=== PATIENT | female | born 1975 | race Hispanic/Latino ===

== ENCOUNTER 2020-07-25 13:44 | Emergency (ER) | payer OTHER, MEDICAID, SELFPAY ==
[2020-07-25 13:50] VITALS: BP 126/72; PULSE 95; RESP 14; TEMP 37.3; O2SAT 97; BMI 26.9
[2020-07-25 14:41] LABS: Bacteria Urine None Seen
[2020-07-25 14:46] LABS: Culture Indicated Urine Cult Not Indicated; RBC Urine 1-5/HPF (0-5/HPF); Squamous Epithelial Cell Urine 5-10 /HPF (0-5/HPF); WBC Urine 0-1/HPF (0-5/HPF)
== END 2020-07-25 18:10 | disposition left against medical advice (07) ==
PROVIDERS: Emergency Provider Emergency Medicine; PCP Family Medicine
DX: R42 Dizziness and giddiness (principal); M54.5 Low back pain; R51.9 Headache, unspecified
CPT/HCPCS: 81003; 81015; 93005; 99281

== ENCOUNTER 2021-06-19 16:06 | Emergency (ER) | payer OTHER, MEDICAID, SELFPAY ==
[2021-06-19] VITALS (7 sets, daily range): BP systolic 105–142; BP diastolic 65–76; PULSE 66–85; RESP 16–24; TEMP 36.4; O2SAT 96–100; BMI 24.2
--- NOTE | 2021-06-19 16:35 | DI.RAD.S_ITS ---
PROCEDURE: XR CHEST 1V INDICATIONS: chest pain TECHNIQUE: One view of the chest was acquired. COMPARISON: None. FINDINGS: Surgical changes and devices: Breast implants are present. Lungs and pleura: Lungs are clear. No pleural effusions or pneumothorax. Mediastinum: Mediastinal contours appear normal. Heart size is normal. Bones and chest wall: No suspicious bony lesions. Overlying soft tissues appear unremarkable. IMPRESSION: No acute pulmonary process. Dictated by: Tali oYst M.D. on 06/19/2021 at 16:55 Approved by: Tali Yost M.D. on 06/19/2021 at 16:56
[2021-06-19 16:50] LABS: Add Manual Diff / Slide Review NO; Basophils Absolute Auto 100 /uL (0-100); Eosinophils Absolute Auto 300 /uL (0-450); Eosinophils Percent Auto 2.9 % (2-4); Hemoglobin 13.3 g/dL (12.0-16.0); Lymphocytes Absolute Auto 2700 /uL (1100-4500); Lymphocytes Percent Auto 28.6 % (25-40); Mean Corpuscular Hemoglobin 32.3 PG (26-34); Mean Corpuscular Volume 92.3 fL (80-100); Monocytes Absolute Auto 700 /uL (0-900); Monocytes Percent Auto 7.3 % (3-14); Neutrophils Absolute Auto 5600 /uL (1500-7000); Neutrophils Percent Auto 60.2 % (50-75); Platelet Count 307 X10^3/uL (150-400); Red Blood Cell Count 4.12 X10^6/uL (4.0-5.2); Red Cell Distribution Width 12.5 % (11.6-14.8); White Blood Cell Count 9.3 X10^3/uL (4.5-11.0)
[2021-06-19 17:31] LABS: HEMOLYSIS < 15 (0-50); Troponin I < 0.012 ng/mL (0.01-0.034)
[2021-06-19 17:50] LABS: Alanine Aminotransferase 16 IU/L (<35); Albumin 4.5 g/dL (3.5-5.0); Albumin Globulin Ratio 1.3 (1.0-2.8); Alkaline Phosphatase 67 U/L (38-126); Aspartate Aminotransferase 26 IU/L (14-36); BUN Creatinine Ratio 14.8 (6-22); Bilirubin Total 0.5 mg/dL (0.2-1.3); Blood Urea Nitrogen 12 mg/dL (7-17); Calcium 9.1 mg/dL (8.4-10.2); Carbon Dioxide 24 mmol/L (22-32); Chloride 104 mmol/L (98-107); Creatine Kinase 87 U/L (30-135); Estimated Glomerular Filt Rate > 60 mL/min (>60); Globulin 3.5 g/dL (1.7-4.1); Glucose 92 mg/dL (70-100); Lipase 105 U/L (23-300); Magnesium 2.1 mg/dL (1.6-2.3); Sodium 137 mmol/L (137-145)
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
[2021-06-19] MEDS: KETOROLAC 30 MG/ML VIAL 15 MG IV (19:24)
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
[2021-06-19] MEDS: MORPHINE 2 MG/ML INJ IV (19:43)
== END 2021-06-19 20:16 | disposition home or self-care (01) ==
PROVIDERS: Emergency Medicine; Emergency Provider Emergency Medicine; PCP Family Medicine
DX: R07.89 Other chest pain (principal); K08.89 Other specified disorders of teeth and supporting structures; R68.84 Jaw pain
CPT/HCPCS: 36415; 71045; 80053; 82550; 83690; 83735; 84484; 85025; 93005; 96374; 96375; 99284; J1885; J2270

== ENCOUNTER 2021-09-18 22:10 | Emergency (ER) | payer OTHER, MEDICAID, SELFPAY ==
[2021-09-18 22:19] VITALS: BP 144/82; PULSE 80; RESP 19; TEMP 36.4; O2SAT 99; BMI 23.2
--- NOTE | 2021-09-18 22:28 | ED_ITS ---
HPI - Headache General Chief Complaint: Headache Stated Complaint: headache, dizziness, cold sweats Time Seen by Provider: 09/18/21 22:26 Mode of arrival: Ambulatory History of Present Illness HPI Narrative: 46-year-old female smoker presents with family in the chief complaint of a gradually worsening generalized headache with associated nausea and chills. She denies any measured fever. She denies any trauma or injury. She does not take any blood thinners. She does have some mild neck pain. She denies abdominal pain. She has no neurologic symptoms such as blurred vision, trouble with speech or extremity numbness, tingling or weakness. She states her headache is worse with bright lights and loud noise and improves in a dark room. She states she is been under tremendous stress at home with an upcoming anniversary of a very significant event in her life Related Data Previous Rx's Medication Instructions Recorded amoxicillin 500 mg capsule 500 mg PO BID #14 caps 06/19/21 hydrocodone 5 mg-acetaminophen 325 1 tab PO Q6H PRN pain #10 tabs 06/19/21 mg tablet Allergies Allergy/AdvReac Type Severity Reaction Status Date / Time No Known Drug Allergies Allergy Verified 07/25/20 13:52 Review of Systems Review of Systems Narrative: GENERAL: See HPI HEENT: See HPI RESPIRATORY: Denies dyspnea, cough, wheezing, hemoptysis, sputum. CARDIOVASCULAR: Denies chest pain, palpitations, orthopnea, edema, GASTROINTESTINAL: See HPI : Denies dysuria, frequency, incontinence, hematuria, urinary retention. MUSCULOSKELETAL: denies weakness, joint pain, or bony pain SKIN: Denies rash, skin lesions, or other NEUROLOGIC: See HPI PSYCHIATRIC: No concerning psychosocial issues. 12 point review of systems is negative except for those stated above Patient History Social History Smoking Status: Current some day smoker Smoking Status: Current some day smoker alcohol intake frequency: holidays/special occasions only Substance Use Type: does not use Exam Narrative Exam Narrative: GENERAL: [46] year old patient appears stated age. Well-developed patient, in mild distress. HEAD: Atraumatic. Normocephalic. EYES: Pupils equal round and reactive. Extraocular motions intact. No scleral icterus. No injection or drainage. ENT: Nose without bleeding, purulent drainage. Throat without erythema, tonsillar hypertrophy or exudate. Airway patent. NECK: Trachea midline. Non tender no meningeal signs CARDIOVASCULAR: Regular rate and rhythm without murmurs, gallops, or rubs. RESPIRATORY: Clear to auscultation. Breath sounds equal bilaterally. No wheezes, rales, or rhonchi. GASTROINTESTINAL: Abdomen soft, non-tender, nondistended. EXTREMITIES: No edema or joint tenderness. BACK: Nontender without deformity or crepitance. No flank tenderness. NEURO: AOx3. SKIN: No rash or erythema of visible areas Initial Vital Signs Initial Vital Signs: Vital Signs Temperature 97.6 F 09/18/21 22:19 Pulse Rate 80 09/18/21 22:19 Respiratory Rate 19 09/18/21 22:19 Blood Pressure 144/82 H 09/18/21 22:19 Pulse Oximetry 99 09/18/21 22:19 Oxygen Delivery Method 09/18/21 22:19 Course Orders Ordered: ED Orders 09/18/21 23:46 COVID19 -Nasal RAPID/Pre-Proc Stat 09/19/21 01:40 Respiratory Panel (Film Array) Stat Discontinued Medications Dexamethasone (Dexamethasone 10 Mg/Ml Vial) 10 mg IV NOW ONE Stop: 09/18/21 23:18 Last Admin: 09/18/21 23:31 Dose: 10 mg Documented By: EB Diphenhydramine HCl (Diphenhydramine 50 Mg/Ml Vial) 25 mg IV NOW ONE Stop: 09/18/21 23:18 Last Admin: 09/18/21 23:31 Dose: 25 mg Documented By: EB Sodium Chloride (Normal Saline 0.9%) 1,000 mls @ 1,000 mls/hr IV BOLUS ONE Stop: 09/19/21 00:16 Last Admin: 09/18/21 23:31 Dose: 1,000 mls/hr Documented By: EB Ketorolac Tromethamine (Ketorolac 30 Mg/Ml Vial) 15 mg IV NOW ONE Stop: 09/18/21 23:18 Last Admin: 09/18/21 23:31 Dose: 15 mg Documented By: EB Metoclopramide HCl (Metoclopramide 10 Mg/2 Ml Inj) 10 mg IV NOW ONE Stop: 09/18/21 23:18 Last Admin: 09/18/21 23:32 Dose: 10 mg Documented By: EB Vital Signs Vital signs: Vital Signs - 8 hr 09/18/21 22:19 09/19/21 01:00 09/19/21 02:43 Temperature 97.6 F Pulse Rate 80 87 75 Respiratory Rate 19 17 16 Blood Pressure 144/82 H 124/79 129/74 Pulse Oximetry 99 97 99 Oxygen Delivery Method Room Air Room Air Room Air MDM - Headache Lab Data Labs: Lab Results 09/18/21 09/19/21 Range/Units 23:46 01:40 Chlamy pneumoniae PCR Not detected (Not Detect) Adenovirus (PCR) Not detected (Not Detect) B. pertussis DNA (PCR) Not detected (Not Detecte) B.parapertussis DNA PCR Not detected (Not Detecte) Coronavirus OC43 (PCR) Not detected (Not Detect) Coronavirus HKU1 (PCR) Not detected (Not Detect) Coronavirus 229E (PCR) Not detected (Not Detect) SARS-CoV-2 (PCR) Negative Not detected (Negative) Coronavirus NL63 (PCR) Not detected (Not Detect) Human Metapneumovir PCR Not detected (Not Detect) Influenza Type A (PCR) Not detected (Not Detect) Influenza Type B (PCR) Not detected (Not Detect) M. pneumoniae (PCR) Not detected (Not Detect) Parainfluenza 1 (PCR) Not detected (Not Detect) Parainfluenza 2 (PCR) Not detected (Not Detect) Parainfluenza 3 (PCR) Not detected (Not Detect) Parainfluenza 4 (PCR) Not detected (Not Detect) RSV (PCR) Not detected (Not Detect) Entero/Rhino (PCR) Not detected (Not Detect) Point of Care Testing Glucose POC 93 MDM Narrative Medical decision making narrative: Multiple etiologies for patient's symptoms considered including: [Migraine versus viral syndrome versus tension headache versus meningitis versus other] Patient's symptoms improved over duration of stay with above-stated therapies. We did discuss the possibility of lumbar puncture but both sure the opinion that it is unlikely to have any significant findings or change the disposition given how well she appears after initial round of therapies. Findings and discharge diagnosis discussed with patient/family followed by verbalization of understanding Return precautions discussed with patient/family whom verbalize understanding. Discharge Plan Departure Patient Disposition: Home Clinical Impression: Headache Instructions: DI for Headache Activity Restrictions/Additional Instructions: *You have been diagnosed with [atypical migraine or stress related headache, as we discussed your history and physical exam as well as response to therapies is very reassuring. *What to do: *Please continue to take your regular medications as directed. [ ] New medication prescriptions sent to your pharmacy: [ ] [ ] New medication written as a paper prescription [x ] No new medications given *Please follow up with your primary care provider in 2-3 days, call for an appointment. Let them know you were seen in the Emergency Department and that we ask that you be seen in follow up. We will electronically transmit a record of today's note if your PCP is in our system *If you do not have a primary care provider please contact the [facility] Resource line at [phone]. They will ask some questions about your medical history and help get you set up with a doctor in the community. *Return to Emergency Department if you should have any new, worsening or concerning symptoms, such as [fever greater than 101 F, shaking chills, worsening pain, persistent vomiting or other bothersome symptoms] Prescriptions: No Action amoxicillin 500 mg capsule 500 mg PO BID Qty: 14 0RF hydrocodone-acetaminophen 5-325 mg tablet 1 tab PO Q6H PRN (Reason: pain) Qty: 10 0RF Referrals: Jus Berry DO [Primary Care Provider] - Visit Report Forms: Patient Portal/API
[2021-09-18] MEDS: KETOROLAC 30 MG/ML VIAL 15 MG IV (23:31)
[2021-09-18] MEDS: DEXAMETHASONE 10 MG/ML VIAL IV (23:31)
[2021-09-18] MEDS: diphenhydrAMINE 50 MG/ML VIAL 25 MG IV (23:31)
[2021-09-18] MEDS: SODIUM CHLORIDE 0.9% 1,000 ML 1000 ML IV (23:31)
[2021-09-18] MEDS: METOCLOPRAMIDE 10 MG/2 ML INJ IV (23:32)
[2021-09-19 00:05] LABS: COVID19 -Nasal RAPID Negative (Negative)
[2021-09-19 01:00] VITALS: BP 124/79; PULSE 87; RESP 17; O2SAT 97
--- NOTE | 2021-09-19 01:49 | PC.NURSE ---
Pt reports pain has improved. Pt thinking recent major life stressors could be causing her symptoms. Provider aware.
[2021-09-19 02:43] VITALS: BP 129/74; PULSE 75; RESP 16; O2SAT 99
[2021-09-19 02:43] LABS: Adenovirus Not Detected (Not Detect); B. parapertussis Not Detected (Not Detecte); Bordetella pertussis Not Detected (Not Detecte); Chlamydophila pneumoniae Not Detected (Not Detect); Coronavirus 229E Not Detected (Not Detect); Coronavirus HKU1 Not Detected (Not Detect); Coronavirus NL 63 Not Detected (Not Detect); Coronavirus OC43 Not Detected (Not Detect); Human Metapneumovirus Not Detected (Not Detect); Human Rhinovirus/Enterovirus Not Detected (Not Detect); Influenza A Not Detected (Not Detect); Influenza B Not Detected (Not Detect); Mycoplasma pneumoniae Not Detected (Not Detect); Parainfluenza Virus 1 Not Detected (Not Detect); Parainfluenza Virus 2 Not Detected (Not Detect); Parainfluenza Virus 3 Not Detected (Not Detect); Parainfluenza Virus 4 Not Detected (Not Detect); Respiratory Syncytial Virus Not Detected (Not Detect); SARS- CoV-2 Not Detected (Not Detecte)
== END 2021-09-19 02:44 | disposition home or self-care (01) ==
PROVIDERS: Emergency Provider Emergency Medicine; PCP Family Medicine
DX: R51.9 Headache, unspecified (principal); M54.2 Cervicalgia; Z20.822 Contact with and (suspected) exposure to COVID-19
CPT/HCPCS: 82962; 87633; 87635; 96374; 96375; 99283; 99284; C9803; J1100; J1200; J1885; J2765

== ENCOUNTER → 2021-12-25 09:54 | Outpatient (CLI) | payer OTHER, MEDICAID, SELFPAY | PROVIDERS: PCP Family Medicine; Referring Provider Internal Medicine; Visit Provider Internal Medicine | DX: Z23 Encounter for immunization (principal) | CPT/HCPCS: 90471; 90686 ==

== ENCOUNTER 2023-02-23 12:40 | Emergency (ER) | payer SELFPAY ==
[2023-02-23] VITALS (8 sets, daily range): BP systolic 132–161; BP diastolic 88–102; PULSE 96–111; RESP 17–25; TEMP 36.7; O2SAT 97; BMI 23.4
--- NOTE | 2023-02-23 12:53 | DI.RAD.S_ITS ---
PROCEDURE: XR CHEST 1V INDICATIONS: chest pain TECHNIQUE: One view of the chest was acquired. COMPARISON: None. FINDINGS: Surgical changes and devices: Mammoplasty implants are incidentally noted. Lungs and pleura: Lungs are clear. No pleural effusions or pneumothorax. Mediastinum: Mediastinal contours appear normal. Heart size is normal. Bones and chest wall: No suspicious bony lesions. Overlying soft tissues appear unremarkable. IMPRESSION: No acute cardiopulmonary abnormality is seen. Dictated by: Ralph Cruz M.D. on 02/23/2023 at 12:14 Approved by: Ralph Cruz M.D. on 02/23/2023 at 12:15
[2023-02-23 13:23] LABS: INR 0.9 (0.9-1.3); Prothrombin Time 10.8 SECONDS (9.4-12.5)
[2023-02-23 13:26] LABS: PTT Partial Thromboplastin Tim 33 SECONDS (25.1-36.5)
[2023-02-23] MEDS: ASPIRIN 81 MG CHEW TAB 324 MG PO (13:26)
[2023-02-23 13:27] LABS: Alanine Aminotransferase 24 IU/L (<35); Albumin 4.8 g/dL (3.5-5.0); Albumin Globulin Ratio 1.2 (1.0-2.8); Alkaline Phosphatase 80 U/L (38-126); Aspartate Aminotransferase 26 IU/L (14-36); BUN Creatinine Ratio 14.5 (6-22); Bilirubin Total 0.6 mg/dL (0.2-1.3); Blood Urea Nitrogen 11 mg/dL (7-17); Carbon Dioxide 25 mmol/L (22-32); Chloride 105 mmol/L (98-107); Creatine Kinase 79 U/L (30-135); Estimated Glomerular Filt Rate > 60 mL/min (>60); Globulin 3.9 g/dL (1.7-4.1); Glucose 100 mg/dL (70-100); HEMOLYSIS 24 (0-50); Lipase 94 U/L (23-300); Magnesium 1.9 mg/dL (1.6-2.3); Potassium 3.9 mmol/L (3.4-5.1); Sodium 138 mmol/L (137-145); Total Protein 8.7 g/dL (6.3-8.2)
[2023-02-23 13:32] LABS: Add Manual Diff / Slide Review NO; Basophils Absolute Auto 100 /uL (0-100); Basophils Percent Auto 0.9 % (0-2); Eosinophils Absolute Auto 100 /uL (0-450); Eosinophils Percent Auto 1.1 % (2-4); Hematocrit 42.5 % (36-46); Hemoglobin 14.2 g/dL (12.0-16.0); Lymphocytes Absolute Auto 1700 /uL (1100-4500); Mean Corpuscular HGB Conc 33.5 % (30-36); Mean Corpuscular Hemoglobin 30.4 PG (26-34); Mean Corpuscular Volume 90.8 fL (80-100); Monocytes Absolute Auto 700 /uL (0-900); Monocytes Percent Auto 6.8 % (3-14); Neutrophils Absolute Auto 7100 /uL (1500-7000); Neutrophils Percent Auto 73.2 % (50-75); Platelet Count 349 X10^3/uL (150-400); Red Blood Cell Count 4.68 X10^6/uL (4.0-5.2); Red Cell Distribution Width 12.5 % (11.6-14.8); White Blood Cell Count 9.7 X10^3/uL (4.5-11.0)
[2023-02-23 13:38] LABS: Troponin I < 0.012 ng/mL (0.01-0.034)
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
== END 2023-02-23 15:41 | disposition home or self-care (01) ==
PROVIDERS: Emergency Provider Emergency Medicine
DX: K22.4 Dyskinesia of esophagus (principal); R07.9 Chest pain, unspecified
CPT/HCPCS: 36415; 71045; 80053; 82550; 83690; 83735; 84484; 85025; 85610; 85730; 93005; 99284

== ENCOUNTER 2023-04-24 12:48 | Emergency (ER) | payer OTHER, SELFPAY ==
[2023-04-24 13:12] VITALS: BP 128/82; PULSE 90; RESP 18; TEMP 37.3; O2SAT 96; BMI 22.2
--- NOTE | 2023-04-24 13:59 | ED_ITS ---
HPI - Psych General Chief Complaint: Psychiatric Symptoms Stated Complaint: lightheaded,lymph nodes swelling in neck Time Seen by Provider: 04/24/23 13:59 Source: patient Mode of arrival: Ambulatory History of Present Illness HPI Narrative: 47-year-old female presents with lightheadedness, lymph node swelling in neck. The patient is extremely paranoid on arrival, stating she thinks her phone has been hacked and that she is being followed. She has some trouble giving good history in this setting. She does not know intermittent mild headaches recently, along with possible intermittent bilateral lymph node swelling in neck that she states has been present since 2017. She denies fevers, chills, sudden or severe pain, neck stiffness or pain, rash, visual or hearing changes, nausea or vomiting or diarrhea, focal numbness or weakness, shortness of breath, or other changes. Social work is also being involved for further assessment. Related Data Previous Rx's Medication Instructions Recorded amoxicillin 500 mg capsule 500 mg PO BID #14 caps 06/19/21 hydrocodone 5 mg-acetaminophen 325 1 tab PO Q6H PRN pain #10 tabs 06/19/21 mg tablet omeprazole 20 mg capsule,delayed 20 mg PO DAILY #30 caps 02/23/23 release Allergies Allergy/AdvReac Type Severity Reaction Status Date / Time No Known Drug Allergies Allergy Verified 02/24/23 08:34 Review of Systems Review of Systems Narrative: Constitutional: no fever, no chills Eyes: no visual disturbance, no discharge Ears, Nose, Mouth, Throat: no rhinorrhea, no sore throat Cardiovascular: no chest pain, no palpitations Respiratory: no cough, no shortness of breath Gastrointestinal: no abdominal pain, no vomiting, no diarrhea Genitourinary: no dysuria, no hematuria Musculoskeletal: no back pain, no neck stiffness Skin: no rash, no wound Neurological: no focal weakness, no focal numbness Patient History Social History (System 02/24/23 @ 08:34 by Rosalio Garcia) Smoking Status: Current some day smoker Smoking Status: Current some day smoker tobacco type: cigarettes alcohol intake frequency: holidays/special occasions only Substance Use Type: does not use Exam Narrative Exam Narrative: Const: no acute distress, non toxic appearing Eyes: PERRLA, EOMI ENT: uvula midline. No tonsillar swelling or exudate. No edema or swelling of oral cavity including tongue, under tongue, cheeks, submental, sublingual areas. No pain on palpation of throat. No pus or exudate. No drooling. No trismus. No stridor. Neck: supple, non-tender; I do not currently palpate any large or tender lymphadenopathy Resp: no respiratory distress, clear to auscultation bilaterally Card: regular rate and rhythm, no murmurs Abd: non tender diffusely, no rigidity or rebound or guarding Back: no T or L spine tenderness, no CVA tenderness bilaterally Extrem: no deformities, no swelling bilateral lower extremities Psych: non disheveled appearance. Decerased eye contact. Thought content why in ED today. Thought process linear, goal oriented. Mood anxious. Affect anxious. Patient overall cooperative. Cognition within normal limits. No SI or HI. No AVH noted on exam. Neuro: ANOx4, steel loader grossly intact, grossly intact sensation and strength all extremities Skin: no rash, warm and dry Initial Vital Signs Initial Vital Signs: Vital Signs Temperature 99.1 F 04/24/23 13:12 Pulse Rate 90 04/24/23 13:12 Respiratory Rate 18 04/24/23 13:12 Blood Pressure 128/82 04/24/23 13:12 Pulse Oximetry 96 04/24/23 13:12 Oxygen Delivery Method Room Air 04/24/23 13:12 Course Course Course Narrative: This patient presents with substantial paranoia, concerning to me for underlying psychiatric illness. I do not think she currently consistently has capacity. I am involving social work for further assessment. While I think the likelihood of intracranial mass, bleed is very low, I am obtaining CT head along with psychiatric screening workup and will reassess closely. CBC reassuring. Chemistry reassuring. TSH low, with free T4 within normal limits. negative. Urine without clear symptomatic infection setting of no clear urinary symptoms. UDS negative. COVID negative. Tylenol and salicylate negative. Ethanol negative. Radiology review of imaging below, which I agree with on my independent review: FINDINGS: Image quality: Diagnostic. CSF spaces: Basal cisterns are patent. No extra-axial fluid collections. The ventricles are symmetric in size and shape. Brain: No intracranial bleeds or masses. There is cerebral volume loss for age, with resultant ventricular and sulcal prominence. There are very mild periventricular and deep white matter chronic small vessel ischemic changes. There is intracranial internal carotid artery atherosclerosis. Skull and face: Calvarium and visualized facial bones appear intact, without suspicious lesions. Sinuses: Visualized sinuses and mastoids are clear. IMPRESSION: No acute intracranial pathology. Dictated by: Caesar Meadows M.D. on 04/24/2023 at 14:45 Signed out at roughly 8PM to Dr. Chaparro with plan to complete DCR evaluation and reassess. Patient stable, but SW and I agree with plan for DCR evaluation with consideration of admission. Staff and RNs aware of my plan. Orders Ordered: ED Orders 04/24/23 13:26 Consult to QUALITY PROCESS ENGINEER - Pigment Processor Stat 04/24/23 14:20 CT head/brain wo con Stat 04/24/23 14:37 Acetaminophen Stat Complete Blood Count AUTO DIFF Stat Comprehensive Metabolic Panel Stat Ethanol (ETOH) Stat Free T4, Direct Thyroxine Stat Test Serum,Qual Stat Salicylate Stat TSH w/ Reflex to FT4 Stat 04/24/23 14:49 COVID19 -Nasal RAPID Stat 04/24/23 14:57 EKG-12 Lead Stat 04/24/23 15:00 Urinalysis and Microscopic Stat Urine Drug Screen, Rapid Stat Vital Signs Vital signs: Vital Signs - 8 hr 04/24/23 13:12 04/24/23 18:39 Temperature 99.1 F Pulse Rate 90 84 Respiratory Rate 18 16 Blood Pressure 128/82 118/78 Pulse Oximetry 96 97 Oxygen Delivery Method Room Air MDM - Psych Lab Data 04/24/23 14:37 04/24/23 14:37 Labs: Lab Results 04/24/23 04/24/23 04/24/23 Range/Units 14:37 14:49 15:00 WBC 9.1 (4.5-11.0) X10^3/uL RBC 4.51 (4.0-5.2) X10^6/uL Hgb 14.0 (12.0-16.0) g/dL Hct 41.1 (36-46) % MCV 91.1 (80-100) fL MCH 31.0 (26-34) PG MCHC 34.0 (30-36) % RDW 13.0 (11.6-14.8) % Plt Count 336 (150-400) X10^3/uL Neut % (Auto) 66.4 (50-75) % Lymph % (Auto) 23.9 L (25-40) % [place] % (Auto) 6.9 (3-14) % Eos % (Auto) 1.7 L (2-4) % Baso % (Auto) 1.1 (0-2) % Neut # (Auto) 6000 (4576-5469) /uL Lymph # (Auto) 2200 (6347-7452) /uL [place] # (Auto) 600 (0-900) /uL Eos # (Auto) 200 (0-450) /uL Baso # (Auto) 100 (0-100) /uL Sodium 137 (137-145) mmol/L Potassium 4.4 (3.4-5.1) mmol/L Chloride 105 (98-107) mmol/L Carbon Dioxide 29 (22-32) mmol/L BUN 19 H (7-17) mg/dL Creatinine 0.71 (0.52-1.04) mg/dL Estimated GFR > 60 (>60) mL/min BUN/Creatinine Ratio 26.8 H (6-22) Glucose 93 (70-100) mg/dL Calcium 9.9 (8.4-10.2) mg/dL Total Bilirubin 0.5 (0.2-1.3) mg/dL AST 22 (14-36) IU/L ALT 17 (<35) IU/L Alkaline Phosphatase 81 (38-126) U/L Total Protein 8.5 H (6.3-8.2) g/dL Albumin 4.8 (3.5-5.0) g/dL Globulin 3.7 (1.7-4.1) g/dL Albumin/Globulin Ratio 1.3 (1.0-2.8) TSH 0.42 L (0.47-4.68) uIU/mL Free T4 0.98 (0.78-2.19) ng/dL Serum , Qual Negative (Negative) Urine Color Yellow Urine Appearance Clear Urine pH 6.5 (4.5-8.0) Ur Specific [place] 1.015 (1.000-1.035) Urine Protein Negative (Negative) Urine Glucose (UA) Negative (Negative) g/dL Urine Ketones Negative (NEGATIVE) Urine Occult Blood Negative (Negative) Urine Nitrate Negative (Negative) Urine Bilirubin Negative (NEGATIVE) Urine Urobilinogen 0.2 (0.2) E.U./dL Ur Leukocyte Esterase Negative (NEGATIVE) Urine RBC 0-1/hpf (0-5/HPF) Urine WBC 0-1/hpf (0-5/HPF) Ur Squamous Epith Cells 5-10 /hpf H (0-5/HPF) Urine Bacteria Few (2-10) H (None) Ur Culture Indicated? Cult not indicated Vol Urine Centrifuged 10ml (spun) Salicylates < 1.0 (<20) mg/dL U Opiates 300ng/mL cut Negative (Negative) Ur Oxycodone Screen Negative (Negative) Urine Methadone Screen Negative (Negative) Acetaminophen < 10 (10-30) ug/mL Ur Barbiturates Screen Negative (Negative) U Tricyclic Antidepress Negative (Negative) Ur Phencyclidine Scrn Negative (Negative) Ur Amphetamines Screen Negative (Negative) U Methamphetamines Scrn Negative (Negative) Ur MDMA Scrn (Ecstasy) Negative (Negative) U Benzodiazepines Scrn Negative (Negative) Urine Cocaine Screen Negative (Negative) U Marijuana (THC) Screen Negative (Negative) Urine Specific [place] (Normal) Ethyl Alcohol < 10 ( - 10) mg/dL Ur Creatinine (Normal) SARS-CoV-2 (PCR) Negative (Negative) 04/24/23 Range/Units 15:00 WBC (4.5-11.0) X10^3/uL RBC (4.0-5.2) X10^6/uL Hgb (12.0-16.0) g/dL Hct (36-46) % MCV (80-100) fL MCH (26-34) PG MCHC (30-36) % RDW (11.6-14.8) % Plt Count (150-400) X10^3/uL Neut % (Auto) (50-75) % Lymph % (Auto) (25-40) % [place] % (Auto) (3-14) % Eos % (Auto) (2-4) % Baso % (Auto) (0-2) % Neut # (Auto) (3541-9529) /uL Lymph # (Auto) (6923-1985) /uL [place] # (Auto) (0-900) /uL Eos # (Auto) (0-450) /uL Baso # (Auto) (0-100) /uL Sodium (137-145) mmol/L Potassium (3.4-5.1) mmol/L Chloride (98-107) mmol/L Carbon Dioxide (22-32) mmol/L BUN (7-17) mg/dL Creatinine (0.52-1.04) mg/dL Estimated GFR (>60) mL/min BUN/Creatinine Ratio (6-22) Glucose (70-100) mg/dL Calcium (8.4-10.2) mg/dL Total Bilirubin (0.2-1.3) mg/dL AST (14-36) IU/L ALT (<35) IU/L Alkaline Phosphatase (38-126) U/L Total Protein (6.3-8.2) g/dL Albumin (3.5-5.0) g/dL Globulin (1.7-4.1) g/dL Albumin/Globulin Ratio (1.0-2.8) TSH (0.47-4.68) uIU/mL Free T4 (0.78-2.19) ng/dL Serum , Qual (Negative) Urine Color Urine Appearance Urine pH Normal (4.5-8.0) Ur Specific [place] (1.000-1.035) Urine Protein (Negative) Urine Glucose (UA) (Negative) g/dL Urine Ketones (NEGATIVE) Urine Occult Blood (Negative) Urine Nitrate (Negative) Urine Bilirubin (NEGATIVE) Urine Urobilinogen (0.2) E.U./dL Ur Leukocyte Esterase (NEGATIVE) Urine RBC (0-5/HPF) Urine WBC (0-5/HPF) Ur Squamous Epith Cells (0-5/HPF) Urine Bacteria (None) Ur Culture Indicated? Vol Urine Centrifuged Salicylates (<20) mg/dL U Opiates 300ng/mL cut (Negative) Ur Oxycodone Screen (Negative) Urine Methadone Screen (Negative) Acetaminophen (10-30) ug/mL Ur Barbiturates Screen (Negative) U Tricyclic Antidepress (Negative) Ur Phencyclidine Scrn (Negative) Ur Amphetamines Screen (Negative) U Methamphetamines Scrn (Negative) Ur MDMA Scrn (Ecstasy) (Negative) U Benzodiazepines Scrn (Negative) Urine Cocaine Screen (Negative) U Marijuana (THC) Screen (Negative) Urine Specific [place] Normal (Normal) Ethyl Alcohol ( - 10) mg/dL Ur Creatinine Normal (Normal) SARS-CoV-2 (PCR) (Negative) Discharge Plan Departure Prescriptions: No Action amoxicillin 500 mg capsule 500 mg PO BID Qty: 14 0RF hydrocodone-acetaminophen 5-325 mg tablet 1 tab PO Q6H PRN (Reason: pain) Qty: 10 0RF omeprazole 20 mg capsule,delayed release(DR/EC) 20 mg PO DAILY Qty: 30 0RF Referrals: Jus Berry DO [Primary Care Provider] -
--- NOTE | 2023-04-24 14:20 | DI.CT.S_ITS ---
P the ROCEDURE: CT HEAD/BRAIN WO CON INDICATIONS: psychiatric work up, headache TECHNIQUE: Noncontrast 4.5 mm thick angled axial sections acquired from the foramen magnum to the vertex, with coronal and sagittal reformats. For radiation dose reduction, the following was used: automated exposure control, adjustment of mA and/or kV according to patient size. COMPARISON: None. FINDINGS: Image quality: Diagnostic. CSF spaces: Basal cisterns are patent. No extra-axial fluid collections. The ventricles are symmetric in size and shape. Brain: No intracranial bleeds or masses. There is cerebral volume loss for age, with resultant ventricular and sulcal prominence. There are very mild periventricular and deep white matter chronic small vessel ischemic changes. There is intracranial internal carotid artery atherosclerosis. Skull and face: Calvarium and visualized facial bones appear intact, without suspicious lesions. Sinuses: Visualized sinuses and mastoids are clear. IMPRESSION: No acute intracranial pathology. Dictated by: Caesar Meadows M.D. on 04/24/2023 at 14:45 Approved by: Caesar Meadows M.D. on 04/24/2023 at 14:45
[2023-04-24 14:47] LABS: Add Manual Diff / Slide Review NO; Basophils Absolute Auto 100 /uL (0-100); Basophils Percent Auto 1.1 % (0-2); Eosinophils Absolute Auto 200 /uL (0-450); Eosinophils Percent Auto 1.7 % (2-4); Hematocrit 41.1 % (36-46); Lymphocytes Absolute Auto 2200 /uL (1100-4500); Lymphocytes Percent Auto 23.9 % (25-40); Mean Corpuscular Volume 91.1 fL (80-100); Monocytes Absolute Auto 600 /uL (0-900); Monocytes Percent Auto 6.9 % (3-14); Neutrophils Absolute Auto 6000 /uL (1500-7000); Neutrophils Percent Auto 66.4 % (50-75); Platelet Count 336 X10^3/uL (150-400); Red Blood Cell Count 4.51 X10^6/uL (4.0-5.2); White Blood Cell Count 9.1 X10^3/uL (4.5-11.0)
[2023-04-24 15:05] LABS: HEMOLYSIS < 15 (0-50); Potassium 4.4 mmol/L (3.4-5.1)
[2023-04-24 15:06] LABS: Acetaminophen < 10 ug/mL (10-30); Alanine Aminotransferase 17 IU/L (<35); Albumin 4.8 g/dL (3.5-5.0); Albumin Globulin Ratio 1.3 (1.0-2.8); Alkaline Phosphatase 81 U/L (38-126); Aspartate Aminotransferase 22 IU/L (14-36); BUN Creatinine Ratio 26.8 (6-22); Bilirubin Total 0.5 mg/dL (0.2-1.3); Blood Urea Nitrogen 19 mg/dL (7-17); Calcium 9.9 mg/dL (8.4-10.2); Carbon Dioxide 29 mmol/L (22-32); Chloride 105 mmol/L (98-107); Estimated Glomerular Filt Rate > 60 mL/min (>60); Ethanol (ETOH) < 10 mg/dL; Globulin 3.7 g/dL (1.7-4.1); Glucose 93 mg/dL (70-100); Salicylate < 1.0 mg/dL (<20); Sodium 137 mmol/L (137-145); Total Protein 8.5 g/dL (6.3-8.2)
[2023-04-24 15:09] LABS: Pregnancy Test Serum,Qual Negative (Negative)
[2023-04-24 15:13] LABS: COVID19 -Nasal RAPID Negative (Negative)
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
[2023-04-24 15:35] LABS: Appearance Urine UA CLEAR; Bilirubin Urine UA NEGATIVE (NEGATIVE); Color Urine UA YELLOW; Glucose Urine UA NEGATIVE (Negative); Ketones Urine UA NEGATIVE (NEGATIVE); Leukocyte Esterase Urine UA NEGATIVE (NEGATIVE); Nitrite Urine UA NEGATIVE (Negative); Occult Blood Urine UA NEGATIVE (Negative); Protein Urine UA NEGATIVE (Negative); Specific Gravity Urine UA 1.015 (1.000-1.035); Urobilinogen Urine UA 0.2 E.U./dL (0.2); pH Urine UA 6.5 (4.5-8.0)
[2023-04-24 15:37] LABS: UR Morphine/Opiate cutoff 300 Negative (Negative); Ur Creatinine Normal (Normal); Ur Specific Gravity Normal (Normal); Urine Amphetamines Negative (Negative); Urine Barbiturates Negative (Negative); Urine Benzodiazepines Negative (Negative); Urine Cocaine Negative (Negative); Urine MDMA Negative (Negative); Urine Methadone Negative (Negative); Urine Methamphetamines Negative (Negative); Urine Oxycodone Negative (Negative); Urine Phencyclidine Negative (Negative); Urine Tetrahydrocannabinol Negative (Negative); Urine Tricyclic Antidepressant Negative (Negative); Urine pH Normal (Normal)
[2023-04-24 15:43] LABS: TSH w/ Reflex to FT4 0.42 uIU/mL (0.47-4.68)
[2023-04-24 16:34] LABS: Bacteria Urine Few (2-10); Culture Indicated Urine Cult Not Indicated; RBC Urine 0-1/HPF (0-5/HPF); Squamous Epithelial Cell Urine 5-10 /HPF (0-5/HPF); Urine Volume 10mL (spun); WBC Urine 0-1/HPF (0-5/HPF)
[2023-04-24 16:36] LABS: Free T4, Direct Thyroxine 0.98 ng/dL (0.78-2.19)
--- NOTE | 2023-04-24 18:36 | PC.NURSE ---
attempted to call [employer] [facility] patient [facility] her request to let someone know she is here. Pt does not know phone number. Used [facility] phone number listed on [employer]. Office closed at 1600. Unable to leave message.
[2023-04-24 18:39] VITALS: BP 118/78; PULSE 84; RESP 16; O2SAT 97
--- NOTE | 2023-04-24 18:39 | CM.SWNOTE ---
Addendum entered by FLAVIA Payan 04/24/23 19:06: TELEPHONE STATION REPAIRER called DCR Gamaliel ([phone]) to get an update on time of arrival. TELEPHONE STATION REPAIRER left voicemail requesting call back to main ED line. Original Note: ED TELEPHONE STATION REPAIRER Note TELEPHONE STATION REPAIRER notified by ED Provider Dr. Beavers that he endorses concern for pt's lack of insight, capacity, and concern for grave disability. ED provider requests that TELEPHONE STATION REPAIRER dispatch DCR. TELEPHONE STATION REPAIRER faxed clinicals upon medical clearance to [facility] to start process. TELEPHONE STATION REPAIRER follows up w/ a phone call to [facility] to dispatch DCR. TELEPHONE STATION REPAIRER informed pt that ED provider would like her seen by DCR. Pt was agreeable. DCR reached out via phone to TELEPHONE STATION REPAIRER to inform that the DCR dispatching will be Gamaliel after 1700. At pt's request TELEPHONE STATION REPAIRER called friend of pt Erin ([phone]) to inform her that pt is currently in the ED and that she would like her to check on pt's children. TELEPHONE STATION REPAIRER followed up w/ pt after phone call. FLAVIA Pacheco, ANAMIKA
--- NOTE | 2023-04-24 20:05 | PC.NURSE ---
Per pt ok to give update to Gloria Banuelos. Parent that is caring for pts daughter over the weekend. Gloria just wanted to know if it was an accident. Verified that we can update her in 1 hour.
--- NOTE | 2023-04-24 21:02 | PC.NURSE ---
Room check and pt and her belongings are missing. Last room check was about 2039 and pt agreed to wait for the DCR.
--- NOTE | 2023-04-24 21:13 | PC.NURSE ---
I called [place] Police to go to the pts house and see if she is there and bring her back to the ED. Police were familiar with the patient and will attempt to bring her back to the ED
== END 2023-04-24 21:40 | disposition left against medical advice (07) ==
PROVIDERS: Emergency Medicine; Emergency Provider Emergency Medicine; PCP Family Medicine
DX: R42 Dizziness and giddiness (principal); R59.0 Localized enlarged lymph nodes
CPT/HCPCS: 36415; 70450; 80053; 80305; 80320; 80329; 81001; 84439; 84443; 84703; 85025; 87635; 93005; 99284; G0480

== ENCOUNTER 2023-05-21 22:24 | Emergency (ER) | payer OTHER, SELFPAY ==
[2023-05-21 22:36] VITALS: BP 158/85; PULSE 89; RESP 16; TEMP 36.9; O2SAT 98; BMI 22.2
[2023-05-21 23:07] VITALS: BP 158/94; PULSE 90; RESP 17; O2SAT 98
[2023-05-21 23:36] LABS: Urine Volume 10mL (spun)
[2023-05-21 23:37] LABS: Bacteria Urine Occasional (0-1); Calcium Oxalate Crystals Urine Moderate; Mucus Urine 2+ (Negative); Squamous Epithelial Cell Urine 1-5 /HPF (0-5/HPF)
[2023-05-21 23:38] LABS: Culture Indicated Urine Cult Not Indicated; RBC Urine 0-1/HPF (0-5/HPF); WBC Urine 1-5/HPF (0-5/HPF)
--- NOTE | 2023-05-22 00:53 | DI.CT.S_ITS ---
PROCEDURE: CT ABDOMEN PELVIS W CON INDICATIONS: Fever and abdominal pain TECHNIQUE: After the administration of intravenous contrast, axial sections acquired from the lung bases to the pubic symphysis. Coronal and sagittal reformats were performed. For radiation dose reduction, the following was used: automated exposure control, adjustment of mA and/or kV according to patient size. COMPARISON: None. FINDINGS: Image quality: Suboptimal due to motion artifact. Lower Chest: No significant findings. ABDOMEN: Liver: No solid mass. Gallbladder: Absent. Biliary ducts: No biliary dilation. Pancreas: No ductal dilation. Spleen: Size is within normal limits. Adrenal Glands: No adrenal nodules. Kidneys and Ureters: No hydronephrosis. No solid mass. No complex renal cystic lesion which requires follow up. Stomach and Bowel: Normal colonic caliber, without significant wall thickening. Normal appendix. Colonic diverticulosis without evidence of diverticulitis. Fecal debris within the small bowel. Peritoneum: No abnormal intraperitoneal fluid. No free air. Ventral Wall: No significant ventral hernia. Abdominal Nodes: No retroperitoneal or mesenteric adenopathy by size criteria. Vessels: Aorta and inferior vena cava are normal in size. PELVIS: Pelvic Organs: Unremarkable. Bladder: No bladder wall thickening, accounting for underdistention. Pelvic Nodes: No enlarged lymph nodes. Miscellaneous: No inguinal hernias are seen. Bones: No aggressive osseous abnormality. IMPRESSION: No acute abnormality to explain the patient's fever or abdominal pain. Normal appendix. Colonic diverticulosis without evidence of diverticulitis. Fecal debris within the small-bowel, usually indicating small intestinal bacterial overgrowth versus slow transit. Dictated by: Juventino Barcenas M.D. on 05/22/2023 at 2:14 Approved by: Juventino Barcenas M.D. on 05/22/2023 at 2:17
--- NOTE | 2023-05-22 00:54 | ED_ITS ---
HPI - Abdominal Pain General Chief Complaint: Abdominal Pain Stated Complaint: fever, lower abd pain Time Seen by Provider: 05/22/23 00:45 Source: patient Mode of arrival: Ambulatory History of Present Illness HPI narrative: Patient comes to the ED because she is afraid she might have cancer. She does not have a primary care doctor and she does not quite know where to turn. She is noticed lower abdominal pain now for a number of weeks. It has not associated with fever some nausea but no vomiting. She has no severe constipation or ongoing diarrhea. She has no dysuria urgency or frequency. She has not had a period now for about 10 months and wonders if she might be going through menopause. She has some runny gait symptoms such as transient numbness in her left leg also some strange sensations in her neck from time to time but she reiterates that her primary concern is he might have an underlying cancer. She does smoke cigarettes. She takes no daily prescription medications. Two of her children accompanying her today. She also has an unexplained 20 lb unintentional weight loss over the past 6 months. Related Data Previous Rx's Medication Instructions Recorded amoxicillin 500 mg capsule 500 mg PO BID #14 caps 06/19/21 hydrocodone 5 mg-acetaminophen 325 1 tab PO Q6H PRN pain #10 tabs 06/19/21 mg tablet omeprazole 20 mg capsule,delayed 20 mg PO DAILY #30 caps 02/23/23 release nicotine (polacrilex) 4 mg buccal 4 mg mucous membrane Q1H PRN 05/22/23 lozenge nicotine cravings #108 ea nicotine 21 mg/24 hr daily 1 patch transdermal DAILY #28 ea 05/22/23 transdermal patch Allergies Allergy/AdvReac Type Severity Reaction Status Date / Time No Known Drug Allergies Allergy Verified 02/24/23 08:34 Patient History Social History (System 02/24/23 @ 08:34 by Rosalio Garcia) Smoking Status: Current some day smoker Smoking Status: Current some day smoker tobacco type: cigarettes alcohol intake frequency: holidays/special occasions only Substance Use Type: does not use Exam Narrative Exam Narrative: GENERAL: Alert, cooperative and in no distress. HEAD: Atraumatic. Normocephalic. EYES: Sclera are clear without icterus. Extraocular movements are full. ENT: No rhinorrhea. NECK: Supple. Full range of motion. CARDIOVASCULAR: Normal rate and rhythm without murmur gallop or rub. RESPIRATORY: Clear to auscultation. Breath sounds equal bilaterally. No wheezes, rales, or rhonchi. GASTROINTESTINAL: Abdomen soft, non-tender, nondistended. EXTREMITIES: No edema, full range of motion. No obvious trauma. NEURO: Nonfocal examination, normal speech SKIN: No rash or erythema of visible areas PSYCH: Normally oriented. Normal range of affect. Appropriate behavior Initial Vital Signs Initial Vital Signs: Vital Signs Temperature 98.5 F 05/21/23 22:36 Pulse Rate 89 05/21/23 22:36 Respiratory Rate 16 05/21/23 22:36 Blood Pressure 158/85 H 05/21/23 22:36 Pulse Oximetry 98 05/21/23 22:36 Oxygen Delivery Method Room Air 05/21/23 22:36 Course Orders Ordered: ED Orders 05/21/23 23:24 Urine Microscopic Stat 05/22/23 00:53 CT abdomen pelvis w con Stat 05/22/23 01:05 CBC Auto Diff [Complete Blood Count AUTO DIFF] Stat CMP [Comprehensive Metabolic Panel] Stat TSH [Thyroid Stimulating Hormone] Stat 05/22/23 09:02 Test Urine Stat Vital Signs Vital signs: Vital Signs - 8 hr 05/21/23 22:36 05/21/23 23:07 05/21/23 23:07 Temperature 98.5 F Pulse Rate 89 90 Respiratory Rate 16 17 Blood Pressure 158/85 H 158/94 H Pulse Oximetry 98 98 Oxygen Delivery Method Room Air Room Air 05/22/23 01:06 05/22/23 01:06 Temperature Pulse Rate 67 Respiratory Rate 17 Blood Pressure 136/74 Pulse Oximetry 97 Oxygen Delivery Method Room Air MDM - Abdominal Pain Lab Data 05/22/23 01:05 05/22/23 01:05 Labs: Lab Results 05/21/23 05/22/23 Range/Units 23:24 01:05 WBC 12.3 H (4.5-11.0) X10^3/uL RBC 4.48 (4.0-5.2) X10^6/uL Hgb 13.8 (12.0-16.0) g/dL Hct 41.7 (36-46) % MCV 93.1 (80-100) fL MCH 30.8 (26-34) PG MCHC 33.1 (30-36) % RDW 13.0 (11.6-14.8) % Plt Count 361 (150-400) X10^3/uL Neut % (Auto) 56.3 (50-75) % Lymph % (Auto) 34.1 (25-40) % [place] % (Auto) 6.3 (3-14) % Eos % (Auto) 1.9 L (2-4) % Baso % (Auto) 1.4 (0-2) % Neut # (Auto) 6900 (9640-0549) /uL Lymph # (Auto) 4200 (7993-1154) /uL [place] # (Auto) 800 (0-900) /uL Eos # (Auto) 200 (0-450) /uL Baso # (Auto) 200 H (0-100) /uL Sodium 141 (137-145) mmol/L Potassium 3.5 (3.4-5.1) mmol/L Chloride 107 (98-107) mmol/L Carbon Dioxide 28 (22-32) mmol/L BUN 11 (7-17) mg/dL Creatinine 0.62 (0.52-1.04) mg/dL Estimated GFR > 60 (>60) mL/min BUN/Creatinine Ratio 17.7 (6-22) Glucose 105 H (70-100) mg/dL Calcium 10.1 (8.4-10.2) mg/dL Total Bilirubin 0.4 (0.2-1.3) mg/dL AST 31 (14-36) IU/L ALT 19 (<35) IU/L Alkaline Phosphatase 66 (38-126) U/L Total Protein 8.9 H (6.3-8.2) g/dL Albumin 4.9 (3.5-5.0) g/dL Globulin 4.0 (1.7-4.1) g/dL Albumin/Globulin Ratio 1.2 (1.0-2.8) TSH 0.530 (0.47-4.68) uIU/mL Urine RBC 0-1/hpf (0-5/HPF) Urine WBC 1-5/hpf (0-5/HPF) Ur Squamous Epith Cells 1-5 /hpf (0-5/HPF) Calcium Oxalate Crystal Moderate H Urine Bacteria Occasional (0-1) (None) Urine Mucus 2+ H (Negative) Ur Culture Indicated? Cult not indicated Vol Urine Centrifuged 10ml (spun) Urine Test Negative (Negative) Point of care testing: Urine Dip Bedside Urine Glucose Negative Bedside Urine Bilirubin - Negative Bedside Urine Ketone - Negative Urine Specific [place] 1.030 Bedside Urine Occult Blood + Bedside Urine pH 6.0 Bedside Urine Protein - Negative Bedside Urine Urobilinogen - Negative Bedside Urine Nitrite - Negative Bedside Urine Leukocytes - Negative Esterase MDM Narrative Medical decision making narrative: No dangerous abnormality to explain the weight loss or abdominal pain is identified. She is also concerned about a lymph node in the right neck which I can not discretely palpate. The only palpable mass in the right neck is the carotid artery. She seems very worried. We did spend a fair amount of time talking about smoking cessation perhaps 4 minutes. I will prescribe nicotine replacement therapy. Discharge Plan Departure Patient Disposition: Home Clinical Impression: Abdominal pain, Cigarette nicotine dependence, Abnormal loss of weight Activity Restrictions/Additional Instructions: Recommend follow-up with the primary care doctor to discuss ongoing evaluation for your abnormal weight loss and other symptoms she described tonight. Fortunately, no immediately dangerous cause for your symptoms was identified on blood work or imaging. I urged to quit smoking as we discussed. Put a 21 mg patch on and take a 4 mg nicotine lozenge upon awakening in the morning. Uses many of the nicotine lozenges as you need throughout the day. Before going to sleep at night take the nicotine patch off and threw it in the garbage and use a fresh when the following day. As always, return to the ED for new or worsening symptoms, otherwise follow up at the clinic for ongoing investigation of these troubling symptoms. Prescriptions: New nicotine 21 mg/24 hr patch 24 hour 1 patch transdermal DAILY Qty: 28 0RF nicotine (polacrilex) 4 mg lozenge 4 mg mucous membrane Q1H PRN (Reason: nicotine cravings) Qty: 108 0RF Rx Instructions: do not exceed more than 20 michael per day No Action amoxicillin 500 mg capsule 500 mg PO BID Qty: 14 0RF hydrocodone-acetaminophen 5-325 mg tablet 1 tab PO Q6H PRN (Reason: pain) Qty: 10 0RF omeprazole 20 mg capsule,delayed release(DR/EC) 20 mg PO DAILY Qty: 30 0RF Referrals: Jus Berry DO [Primary Care Provider] - Stand Alone Forms: Patient Portal/API
[2023-05-22 01:06] VITALS: BP 136/74; PULSE 67; RESP 17; O2SAT 97
[2023-05-22 01:26] LABS: Pregnancy Test Urine Negative (Negative)
[2023-05-22 01:27] LABS: Add Manual Diff / Slide Review NO; Basophils Absolute Auto 200 /uL (0-100); Basophils Percent Auto 1.4 % (0-2); Eosinophils Absolute Auto 200 /uL (0-450); Eosinophils Percent Auto 1.9 % (2-4); Hematocrit 41.7 % (36-46); Hemoglobin 13.8 g/dL (12.0-16.0); Lymphocytes Absolute Auto 4200 /uL (1100-4500); Lymphocytes Percent Auto 34.1 % (25-40); Mean Corpuscular HGB Conc 33.1 % (30-36); Mean Corpuscular Hemoglobin 30.8 PG (26-34); Mean Corpuscular Volume 93.1 fL (80-100); Monocytes Absolute Auto 800 /uL (0-900); Monocytes Percent Auto 6.3 % (3-14); Neutrophils Absolute Auto 6900 /uL (1500-7000); Neutrophils Percent Auto 56.3 % (50-75); Platelet Count 361 X10^3/uL (150-400); Red Blood Cell Count 4.48 X10^6/uL (4.0-5.2); White Blood Cell Count 12.3 X10^3/uL (4.5-11.0)
[2023-05-22 01:29] LABS: Alanine Aminotransferase 19 IU/L (<35); Albumin 4.9 g/dL (3.5-5.0); Albumin Globulin Ratio 1.2 (1.0-2.8); Alkaline Phosphatase 66 U/L (38-126); Aspartate Aminotransferase 31 IU/L (14-36); BUN Creatinine Ratio 17.7 (6-22); Bilirubin Total 0.4 mg/dL (0.2-1.3); Blood Urea Nitrogen 11 mg/dL (7-17); Calcium 10.1 mg/dL (8.4-10.2); Carbon Dioxide 28 mmol/L (22-32); Chloride 107 mmol/L (98-107); Estimated Glomerular Filt Rate > 60 mL/min (>60); Glucose 105 mg/dL (70-100); HEMOLYSIS 18 (0-50); Potassium 3.5 mmol/L (3.4-5.1); Sodium 141 mmol/L (137-145); Total Protein 8.9 g/dL (6.3-8.2)
[2023-05-22 01:30] VITALS: BP 122/84; PULSE 68; O2SAT 97
[2023-05-22 02:00] VITALS: PULSE 67; RESP 18; O2SAT 98
[2023-05-22 02:30] VITALS: PULSE 67; O2SAT 98
[2023-05-22 02:40] VITALS: BP 134/79; PULSE 62; RESP 18; O2SAT 98
== END 2023-05-22 02:50 | disposition home or self-care (01) ==
PROVIDERS: Emergency Provider Family Medicine Addiction Medicine; PCP Family Medicine
DX: R10.30 Lower abdominal pain, unspecified (principal); R63.4 Abnormal weight loss; F17.210 Nicotine dependence, cigarettes, uncomplicated; R50.9 Fever, unspecified
CPT/HCPCS: 36415; 74177; 80053; 81003; 81015; 81025; 84443; 85025; 99283; 99284; Q9967

== ENCOUNTER 2023-05-31 15:03 | Emergency (ER) | payer OTHER, SELFPAY ==
[2023-05-31 15:14] VITALS: BP 144/85; PULSE 77; RESP 17; TEMP 36.9; O2SAT 99; BMI 21.4
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
[2023-05-31 16:17] LABS: Hematocrit 38.8 % (36-46); Mean Corpuscular HGB Conc 33.6 % (30-36); Mean Corpuscular Hemoglobin 31.3 PG (26-34); Mean Corpuscular Volume 93.1 fL (80-100); Platelet Count 318 X10^3/uL (150-400); Red Blood Cell Count 4.16 X10^6/uL (4.0-5.2); Red Cell Distribution Width 12.7 % (11.6-14.8); White Blood Cell Count 11.2 X10^3/uL (4.5-11.0)
[2023-05-31 16:19] LABS: Add Manual Diff / Slide Review YES
[2023-05-31 16:22] LABS: Appearance Urine UA CLEAR; Bilirubin Urine UA NEGATIVE (NEGATIVE); Color Urine UA YELLOW; Glucose Urine UA NEGATIVE (Negative); Ketones Urine UA NEGATIVE (NEGATIVE); Leukocyte Esterase Urine UA NEGATIVE (NEGATIVE); Nitrite Urine UA NEGATIVE (Negative); Occult Blood Urine UA NEGATIVE (Negative); Protein Urine UA NEGATIVE (Negative); Urobilinogen Urine UA 0.2 E.U./dL (0.2)
[2023-05-31 16:24] LABS: pH Urine UA 7.5 (4.5-8.0)
[2023-05-31 16:24] LABS: Acetaminophen < 10 ug/mL (10-30); Alanine Aminotransferase 19 IU/L (<35); Albumin 4.6 g/dL (3.5-5.0); Albumin Globulin Ratio 1.4 (1.0-2.8); Alkaline Phosphatase 72 U/L (38-126); Aspartate Aminotransferase 27 IU/L (14-36); BUN Creatinine Ratio 7.8 (6-22); Bilirubin Total 0.5 mg/dL (0.2-1.3); Blood Urea Nitrogen 5 mg/dL (7-17); Calcium 9.9 mg/dL (8.4-10.2); Carbon Dioxide 30 mmol/L (22-32); Chloride 106 mmol/L (98-107); Estimated Glomerular Filt Rate > 60 mL/min (>60); Ethanol (ETOH) < 10 mg/dL; Globulin 3.3 g/dL (1.7-4.1); Glucose 105 mg/dL (70-100); HEMOLYSIS < 15 (0-50); Magnesium 2.2 mg/dL (1.6-2.3); Potassium 3.6 mmol/L (3.4-5.1); Salicylate < 1.0 mg/dL (<20); Sodium 138 mmol/L (137-145); Total Protein 7.9 g/dL (6.3-8.2)
[2023-05-31 16:28] LABS: Pregnancy Test Urine Negative (Negative); UR Morphine/Opiate cutoff 300 Negative (Negative); Ur Creatinine Normal (Normal); Ur Specific Gravity Normal (Normal); Urine Amphetamines Negative (Negative); Urine Barbiturates Negative (Negative); Urine Benzodiazepines Positive (Negative); Urine Cocaine Negative (Negative); Urine MDMA Negative (Negative); Urine Methadone Negative (Negative); Urine Methamphetamines Negative (Negative); Urine Oxycodone Negative (Negative); Urine Phencyclidine Negative (Negative); Urine Tetrahydrocannabinol Negative (Negative); Urine Tricyclic Antidepressant Negative (Negative); Urine pH Normal (Normal)
[2023-05-31 16:41] LABS: Urine Volume 10mL (spun)
[2023-05-31 16:42] LABS: Bacteria Urine None Seen; Culture Indicated Urine Cult Not Indicated; RBC Urine None Seen (0-5/HPF); Squamous Epithelial Cell Urine None Seen (0-5/HPF); WBC Urine None Seen (0-5/HPF)
[2023-05-31 16:48] LABS: Neutrophils Absolute Manual 8064 /uL (3000-5900); RBC Morphology Normal Morphology; Total Cells Counted 100
[2023-05-31 16:54] LABS: Thyroid Stimulating Hormone 0.588 uIU/mL (0.47-4.68)
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
--- NOTE | 2023-05-31 19:34 | CM.SWNOTE ---
ED DINING ROOM SUPERVISOR Note DINING ROOM SUPERVISOR called [facility] to confirm they received referral. They were able to confirm they received it but have not reviewed yet. DINING ROOM SUPERVISOR gave them main ED line to follow up with. ED Provider was made aware of this interaction. FLAVIA Pacheco, [facility]
[2023-05-31 20:24] LABS: Influenza A - CEPHEID Flu A NEGATIVE (NEGATIVE); Influenza B - CEPHEID Flu B NEGATIVE (NEGATIVE); Respiratory Syncytial Virus Negative (Negative)
[2023-05-31 20:42] LABS: COVID-19 CEPHEID 4-PLEX PCR Negative (Negative)
[2023-05-31 21:06] VITALS: BP 107/63; PULSE 82; RESP 16; O2SAT 99
--- NOTE | 2023-05-31 21:10 | PC.NURSE ---
late entry: patient was sleeping during the 4 hr reassessment. steady rise and fall of chest visualized
--- NOTE | 2023-05-31 22:31 | PC.NURSE ---
I called [facility] at 2124 to follow up with the nurse regarding a possible admit/transfer for the pt. The nurse at [facility] told me that since the pt isn't gravely disabled, no SI, and no HI, that they will not be able to accept the pt. After notifying Dr. Alcocer, she asked me to try other facilities to see if they would be able to take the pt. I called [facility] at 2219 and spoke with Mervat. She told me that they also are unable to accept the pt due to no SI/HI and no beds available. I then called [facility] and spoke with Jannette. She said that they do have beds available and they cannot intake/accept pt overnight but will have their provider review the chart in the morning and call back once they review. I faxed over the ENGINEER CHIEF report and any other notes,labs that they asked for at [phone]. notified
--- NOTE | 2023-06-01 06:39 | PC.NURSE ---
pt is sleeping.
[2023-06-01 07:56] VITALS: BP 146/82; PULSE 61; RESP 16; O2SAT 97
--- NOTE | 2023-06-01 08:29 | PC.NURSE ---
RN delivered breakfast tray and spoke with pt about how she is doing. Pt states she feels better than last night and that she feels okay to go home and follow up with her therapist through [facility]. Pt expresses concerns about safety at home. Pt states she would like to stay and speak with social work. Dr. Alanis updated
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
--- NOTE | 2023-06-01 14:48 | PC.NURSE ---
Patient hesitant to discharge, states she feels safe here. Restrictions explained to patient regarding resources out of emergency.
[2023-06-01 16:17] VITALS: BP 130/78; PULSE 68; RESP 12; O2SAT 98
--- NOTE | 2023-06-01 16:19 | PC.NURSE ---
Discharge instructions discussed with patient and mother. FERRY TERMINAL SUPERVISOR present as well providing additional follow up resourses. Patient discharging home for one night with mother and will determine where she will stay fci from there she states. Has plan for intake tomorrow with [facility]. Follow up with Dr Mendez later this month
[2023-06-05 05:18] LABS: Free T4, Direct Thyroxine 1.42 ng/dL (0.78-2.19)
== END 2023-06-01 16:26 | disposition home or self-care (01) ==
PROVIDERS: Emergency Medicine; Physician Assistant; Emergency Provider Emergency Medicine; PCP Family Medicine
DX: F41.9 Anxiety disorder, unspecified (principal); Z20.822 Contact with and (suspected) exposure to COVID-19
CPT/HCPCS: 0241U; 36415; 80053; 80305; 80320; 80329; 81001; 81025; 83735; 84439; 84443; 85007; 85025; 99283; G0480